=== PATIENT | female | born 1965 | race Caucasian/White ===

== ENCOUNTER 2020-06-03 17:31 | Emergency (ER) | payer MEDICARE, MEDICAID, SELFPAY ==
[2020-06-03] VITALS (7 sets, daily range): BP systolic 86–133; BP diastolic 47–62; PULSE 83–96; RESP 16; TEMP 37.1; O2SAT 93–100; BMI 22.9
--- NOTE | 2020-06-03 18:01 | ED_ITS ---
HPI - Skin/Abscess/Foreign Bdy General Chief complaint: Skin/Abscess/Foreign Body Stated complaint: states cellulitis Time Seen by Provider: 06/03/20 18:01 Source: patient Mode of arrival: Wheelchair Limitations: no limitations History of Present Illness HPI narrative: 55-year-old smoker with a history of skin infections presents with a chief complaint of ongoing pain and drainage from an abscess on her right hip. She states that less than a week ago she started developing some redness, pain and swelling on her right hip in the absence of any injury and 3 or 4 days ago was seen at an outside facility and had an incision and drainage with the placement of awake and was placed on a combination of Keflex and Bactrim. She states that the redness is gone, the pain is improved, they are still small amount of drainage, she denies any nausea, vomiting or diarrhea. She denies any history of IVDA MD complaint: abscess/boil Onset (ago): day(s) Tetanus up to date: yes Location: RLE Severity: mild Quality: aching Pain Consistency: constant Relieving factors: none Exacerbating factors: palpation Context: recent antibiotic Associated symptoms: denies other symptoms Treatments prior to arrival: bandages and antibiotic Related Data Allergies Allergy/AdvReac Type Severity Reaction Status Date / Time vancomycin Allergy Severe Difficulty Verified 06/03/20 17:43 Breathing flu shot Allergy Uncoded 06/03/20 17:43 Review of Systems Constitutional Constitutional: Denies chills, Denies fatigue, Denies fever(s), Denies frequent falls, Denies lethargy and Denies weakness Eyes Eyes: Denies change in vision, Denies eye discharge, Denies irritation and Denies loss of vision ENT Ears, Nose, Mouth, and Throat: Denies change in voice, Denies dizziness, Denies neck pain, Denies sore throat and Denies throat swelling Cardiovascular Cardiovascular: Denies chest pain, Denies irregular heart rhythm, Denies lightheadedness, Denies palpitations, Denies dyspnea, Denies dyspnea on exertion and Denies orthopnea Respiratory Respiratory: Denies cough, Denies dyspnea, Denies dyspnea on exertion and Denies wheezing Gastrointestinal Gastrointestinal: Denies abdominal pain, Denies change in bowel habits, Denies diarrhea, Denies nausea and Denies vomiting Musculoskeletal Musculoskeletal: Denies neck pain and Denies numbness Integumentary/Breasts Skin/Breast: Denies pruritus, Denies erythema, Denies rash, Reports skin pain, Reports skin swelling and Denies wounds Neurologic Neurologic: Denies behavioral changes, Denies confusion, Denies dizziness, Denies frequent falls, Denies loss of vision, Denies numbness and Denies weakness Psychiatric Psychiatric: Denies anxiety, Denies behavioral changes, Denies confusion, Denies depression, Denies homicidal ideation and Denies suicidal ideation Endocrine Endocrine: Denies fatigue, Denies flushing and Denies palpitations Hematologic/Lymphatic Hematologic/Lymphatic: Denies easy bruising Allergic/Immunologic Allergic/Immunologic: Denies urticaria, Denies throat swelling and Denies wheezing Patient History Social History Smoking Status: Current every day smoker Smoking Status: Current every day smoker alcohol intake frequency: a few times a month Substance Use Type: does not use Exam Narrative Exam Narrative: GEN: AOx3 and in mild distress EYES: Pupils are equal, round, and reactive to light and accommodation. Extraoccular muscles are intact bilaterally. There is no subconjunctival hemorrhage or exudate. CHEST: Lungs are clear to auscultation bilaterally and free of wheezes, rales, or rhonchi. Heart rate is regular rhythm, there are no murmurs, clicks, rubs, or gallops. There is no chest wall tenderness. ABD: Abdomen is soft and nontender. There is no guarding or rebound. Bowel sounds are normal in all 4 quadrants. There is no mass or organomegaly. EXT: Full painless ROM of all extremities with no loss of sensation or strength. SKIN: 5 x 7 cm area of induration on right hip without fluctuance, erythema or warmth. Clear to mildly purulent drainage from small incision site with small piece of packing in place. Bedside US demonstrates no obvious fluid collection. Otherwise warm, pink, and dry. No erythema or rash Initial Vital Signs Initial Vital Signs: Vital Signs Temperature 98.7 F 06/03/20 17:40 Pulse Rate 96 H 06/03/20 17:40 Respiratory Rate 16 06/03/20 17:40 Blood Pressure 133/61 06/03/20 17:40 Pulse Oximetry 100 06/03/20 17:40 Course Orders Ordered: ED Orders 06/03/20 18:20 Basic Metabolic Panel Stat Complete Blood Count AUTO DIFF Stat Discontinued Medications Hydrocodone Bitart/Acetaminophen (Hydrocodone/Acet 5/325 Prepack) 1 bottle MISC SEEINSTR ONE Stop: 06/03/20 19:15 Last Admin: 06/03/20 19:31 Dose: 1 bottle Documented by: PHILLIP Potassium Chloride (Potassium Chloride 20 Meq Tab) 40 meq PO NOW ONE Stop: 06/03/20 19:02 Last Admin: 06/03/20 19:08 Dose: 40 meq Documented by: PHILLIP Vital Signs Vital signs: Vital Signs - 8 hr 06/03/20 17:40 06/03/20 17:51 06/03/20 18:00 Temperature 98.7 F Pulse Rate 96 H 96 H 88 Respiratory Rate 16 Blood Pressure 133/61 86/47 L Pulse Oximetry 100 98 96 06/03/20 18:07 06/03/20 18:30 06/03/20 18:31 Temperature Pulse Rate 94 H 96 H Respiratory Rate Blood Pressure 106/57 L 126/60 Pulse Oximetry 100 100 93 06/03/20 19:00 Temperature Pulse Rate 83 Respiratory Rate Blood Pressure 113/62 Pulse Oximetry 95 MDM - Skin/Abscess/Foreign Bdy Lab Data Result diagrams: 06/03/20 18:20 06/03/20 18:20 Labs: Lab Results 06/03/20 06/03/20 Range/Units 18:20 18:20 WBC 5.9 (4.5-11.0) X10^3/uL RBC 4.16 (4.0-5.2) X10^6/uL Hgb 11.0 L (12.0-16.0) g/dL Hct 32.9 L (36-46) % MCV 78.9 L (80-100) fL MCH 26.4 (26-34) PG MCHC 33.5 (30-36) % RDW 13.6 (11.6-14.8) % Plt Count 218 (150-400) X10^3/uL Neut % (Auto) 58.6 (50-75) % Lymph % (Auto) 31.8 (25-40) % Morehouse % (Auto) 6.7 (3-14) % Eos % (Auto) 2.2 (2-4) % Baso % (Auto) 0.7 (0-2) % Neut # (Auto) 3400 (7218-3899) /uL Lymph # (Auto) 1900 (2785-3814) /uL Morehouse # (Auto) 400 (0-900) /uL Eos # (Auto) 100 (0-450) /uL Baso # (Auto) 0 (0-100) /uL Sodium 137 (137-145) mmol/L Potassium 3.3 L (3.4-5.1) mmol/L Chloride 101 (98-107) mmol/L Carbon Dioxide 30 (22-32) mmol/L BUN 13 (7-17) mg/dL Creatinine 0.74 (0.52-1.04) mg/dL Estimated GFR > 60.0 (>60) mL/min BUN/Creatinine Ratio 17.6 (6-22) Glucose 122 H (70-100) mg/dL Calcium 8.8 (8.4-10.2) mg/dL MDM Narrative Medical decision making narrative: Patient with R hip abscess a few days removed from incision and drainage and use of ABX. No longer fluctuant, no erythema, no obvious fluid collectrion requiring further I&D. NO evidence of sepsis. Return precautions given, questions answered to her apparent satisfaction Discharge Plan Departure Patient Disposition: Home Clinical Impression: Abscess of skin or subcutaneous tissue Qualifiers: Site of cutaneous abscess: extremity Site of cutaneous abscess of extremity: lower extremity Laterality: right Qualified Code(s): L02.415 - Cutaneous abscess of right lower limb Instructions: DI for Skin Abscess Activity Restrictions/Additional Instructions: *You have been diagnosed with [abscess of your right hip. Your exam and blood work are very reassuring. This is likely to take many more days to resolve but we appear to be on the right] *What to do: * continue take medications as directed *Follow up with your primary care provider in 2-3 days, call for an chester ointment. Let them know you were seen in the Emergency Department and that we ask that you be seen in follow up *Return to ER if you should have any new, worsening or concerning symptoms, such as [fever, shaking chills, nausea, vomiting, worsening surrounding redness or other concerns] Referrals: [facility] [Outside]
[2020-06-03 18:40] LABS: Add Manual Diff / Slide Review NO; Basophils Absolute Auto 0 /uL (0-100); Basophils Percent Auto 0.7 % (0-2); Eosinophils Absolute Auto 100 /uL (0-450); Eosinophils Percent Auto 2.2 % (2-4); Hematocrit 32.9 % (36-46); Lymphocytes Absolute Auto 1900 /uL (1100-4500); Lymphocytes Percent Auto 31.8 % (25-40); Mean Corpuscular HGB Conc 33.5 % (30-36); Mean Corpuscular Hemoglobin 26.4 PG (26-34); Mean Corpuscular Volume 78.9 fL (80-100); Monocytes Absolute Auto 400 /uL (0-900); Monocytes Percent Auto 6.7 % (3-14); Neutrophils Absolute Auto 3400 /uL (1500-7000); Neutrophils Percent Auto 58.6 % (50-75); Platelet Count 218 X10^3/uL (150-400); Red Blood Cell Count 4.16 X10^6/uL (4.0-5.2); Red Cell Distribution Width 13.6 % (11.6-14.8); White Blood Cell Count 5.9 X10^3/uL (4.5-11.0)
[2020-06-03 18:52] LABS: BUN Creatinine Ratio 17.6 (6-22); Blood Urea Nitrogen 13 mg/dL (7-17); Calcium 8.8 mg/dL (8.4-10.2); Carbon Dioxide 30 mmol/L (22-32); Chloride 101 mmol/L (98-107); Estimated Glomerular Filt Rate > 60.0 mL/min (>60); Glucose 122 mg/dL (70-100); HEMOLYSIS < 15 (0-50); Potassium 3.3 mmol/L (3.4-5.1); Sodium 137 mmol/L (137-145)
[2020-06-03] MEDS: POTASSIUM CHLORIDE 20 MEQ TAB 40 MEQ PO (19:08)
[2020-06-03] MEDS: HYDROCODONE/ACET 5/325 PREPACK 1 BOTTLE MISC (19:31)
== END 2020-06-03 19:32 | disposition home or self-care (01) ==
PROVIDERS: Emergency Provider Emergency Medicine
DX: L02.415 Cutaneous abscess of right lower limb (principal)
CPT/HCPCS: 36415; 80048; 85025; 99283

== ENCOUNTER 2022-10-08 12:20 | Emergency (ER) | payer MEDICARE, MEDICAID, SELFPAY ==
[2022-10-08] VITALS (19 sets, daily range): BP systolic 109–177; BP diastolic 54–87; PULSE 85–112; RESP 17–22; TEMP 36.4–37; O2SAT 90–98; BMI 25.2
--- NOTE | 2022-10-08 12:53 | DI.CT.S_ITS ---
PROCEDURE: CT HEAD/BRAIN WO CON INDICATIONS: left leg gave out 5 days ago,still dragging' a bit TECHNIQUE: Noncontrast 4.5 mm thick angled axial sections acquired from the foramen magnum to the vertex, with coronal and sagittal reformats. For radiation dose reduction, the following was used: automated exposure control, adjustment of mA and/or kV according to patient size. COMPARISON: None. FINDINGS: Image quality: Excellent. CSF spaces: Basal cisterns are patent. No extra-axial fluid collections. Ventricles are normal in size and shape. Brain: No midline shift. No intracranial masses or hemorrhage. Gandhi-white matter interface is normal. Skull and face: Calvarium and visualized facial bones are intact, without suspicious lesions. Sinuses: Visualized sinuses and mastoids are clear. IMPRESSION: 1. No acute intracranial process. Dictated by: Vera Miranda M.D. on 10/08/2022 at 13:35 Approved by: Vera Miranda M.D. on 10/08/2022 at 13:35
--- NOTE | 2022-10-08 16:14 | ED.ANXIETY ---
HPI - Anxiety <Ana Plascencia DO - Last Filed: 10/21/22 14:12> General Chief Complaint: Anxiety Stated Complaint: Fall/Panic Attack Time Seen by Provider: 10/08/22 15:49 Source: patient Mode of arrival: Ambulatory History of Present Illness HPI narrative: Patient 67-year-old female history of anxiety, remote history of Guillain-Oxly presenting today with variety of symptoms. She reports that she fell 5 days ago she has had ongoing back pain. She reports that her left leg gives out on her and she falls. She feels like when she goes to the bathroom she miss judges and falls on the toilet. She has significant tremors at baseline which she states has been ongoing for at least 3 months. She denies any fever or chills. She has back pain all across her back. There are different reports on how long her leg has been weak and giving out on her. Difficult to tell. Patient is under tremendous amount of stress, both grandparents just there her only surviving family Previous record from 02/09/2020 from [facility] has been received and reviewed was admitted for right salpingo-oophorectomy and right removal of a pelvic mass and adhesion removal no blood work is attached it does mention possible opiate dependence. Related Data Allergies Allergy/AdvReac Type Severity Reaction Status Date / Time vancomycin Allergy Severe Difficulty Verified 10/08/22 12:35 Breathing flu shot Allergy Uncoded 06/03/20 17:43 Review of Systems <Ana Plascencia DO - Last Filed: 10/21/22 14:12> Review of Systems ROS Unobtainable: All systems reviewed & are unremarkable except as noted in HPI and below Patient History <Ana Plascencia DO - Last Filed: 10/21/22 14:12> Social History Smoking Status: Current every day smoker Smoking Status: Current every day smoker alcohol intake frequency: holidays/special occasions only Substance Use Type: does not use Exam <DO Alfredo Fitzgerald Last Filed: 10/21/22 14:12> Initial Vital Signs Initial Vital Signs: Vital Signs Temperature 97.6 F 10/08/22 12:33 Pulse Rate 85 10/08/22 12:33 Respiratory Rate 17 10/08/22 12:33 Blood Pressure 177/66 H 10/08/22 12:33 Pulse Oximetry 98 10/08/22 12:33 Oxygen Delivery Method Room Air 10/08/22 12:33 GENERAL: Patient standing with hands-on gurney bent over. She has significant tremors left leg is a little weaker. Appears disheveled HEENT: Head atraumatic,EOMI, pupils reactive, face symmetric, moist mucous membranes CARDIOVASCULAR: Regular rate and rhythm without murmurs, rubs or gallops. RESPIRATORY: Breath sounds equal bilaterally, no wheezes rales or rhonchi. ABDOMEN: Soft, nontender. Normoactive bowel sounds all 4 quadrants. No guarding or rebound. EXTREMITIES: Normal range of motion, no clubbing or edema. Neurovascularly intact NEUROLOGICAL: Alert and oriented x4.Normal gait and speech. Obvious tremors in all parts of body Unable to lift left leg up off the gurney not able to do [id number] SKIN: Warm, dry, no laceration, no petechiae, no rashes or lesions. <Macy Ross MD - Last Filed: 10/09/22 01:49> Initial Vital Signs Initial Vital Signs: Vital Signs Temperature 97.6 F 10/08/22 12:33 Pulse Rate 85 10/08/22 12:33 Respiratory Rate 17 10/08/22 12:33 Blood Pressure 177/66 H 10/08/22 12:33 Pulse Oximetry 98 10/08/22 12:33 Oxygen Delivery Method Room Air 10/08/22 12:33 Course <Ana Plascencia DO - Last Filed: 10/21/22 14:12> Orders Ordered: Discontinued Medications Hydromorphone HCl (Hydromorphone 1 Mg Inj) 1 mg IV NOW ONE Stop: 10/08/22 17:37 Last Admin: 10/08/22 17:49 Dose: 1 mg Documented By: RB Ketorolac Tromethamine (Ketorolac 30 Mg/Ml Vial) 15 mg IV NOW ONE Stop: 10/08/22 16:27 Last Admin: 10/08/22 16:57 Dose: 15 mg Documented By: RB Lorazepam (Lorazepam 2 Mg/Ml Inj) 2 mg IV NOW ONE Stop: 10/08/22 16:27 Last Admin: 10/08/22 16:57 Dose: 2 mg Documented By: RB Lorazepam (Lorazepam 2 Mg/Ml Inj) 2 mg IV NOW ONE Stop: 10/08/22 19:23 Last Admin: 10/08/22 19:30 Dose: 2 mg Documented By: RB Vital Signs Vital signs: Vital Signs - 8 hr 10/08/22 17:55 10/08/22 17:55 10/08/22 17:56 Temperature Pulse Rate 94 H Respiratory Rate Blood Pressure 113/56 L 126/67 Pulse Oximetry 94 Oxygen Delivery Method 10/08/22 17:56 10/08/22 18:00 10/08/22 18:03 Temperature Pulse Rate 92 H 112 H Respiratory Rate Blood Pressure 129/62 Pulse Oximetry 94 90 L Oxygen Delivery Method 10/08/22 18:03 10/08/22 19:56 10/08/22 19:58 Temperature Pulse Rate 97 H 100 H Respiratory Rate Blood Pressure 129/72 Pulse Oximetry 97 Oxygen Delivery Method 10/08/22 19:58 10/08/22 20:00 10/08/22 20:01 Temperature Pulse Rate 96 H 96 H Respiratory Rate 22 Blood Pressure 109/54 L Pulse Oximetry 94 94 Oxygen Delivery Method 10/08/22 20:01 10/08/22 20:45 Temperature 98.6 F Pulse Rate 96 H 96 H Respiratory Rate 21 Blood Pressure 122/61 Pulse Oximetry 96 97 Oxygen Delivery Method Room Air <Macy Ross MD - Last Filed: 10/09/22 01:49> Orders Ordered: Discontinued Medications Hydromorphone HCl (Hydromorphone 1 Mg Inj) 1 mg IV NOW ONE Stop: 10/08/22 17:37 Last Admin: 10/08/22 17:49 Dose: 1 mg Documented By: RB Ketorolac Tromethamine (Ketorolac 30 Mg/Ml Vial) 15 mg IV NOW ONE Stop: 10/08/22 16:27 Last Admin: 10/08/22 16:57 Dose: 15 mg Documented By: RB Lorazepam (Lorazepam 2 Mg/Ml Inj) 2 mg IV NOW ONE Stop: 10/08/22 16:27 Last Admin: 10/08/22 16:57 Dose: 2 mg Documented By: RB Lorazepam (Lorazepam 2 Mg/Ml Inj) 2 mg IV NOW ONE Stop: 10/08/22 19:23 Last Admin: 10/08/22 19:30 Dose: 2 mg Documented By: RB Vital Signs Vital signs: Vital Signs - 8 hr 10/08/22 17:55 10/08/22 17:55 10/08/22 17:56 Temperature Pulse Rate 94 H Respiratory Rate Blood Pressure 113/56 L 126/67 Pulse Oximetry 94 Oxygen Delivery Method 10/08/22 17:56 10/08/22 18:00 10/08/22 18:03 Temperature Pulse Rate 92 H 112 H Respiratory Rate Blood Pressure 129/62 Pulse Oximetry 94 90 L Oxygen Delivery Method 10/08/22 18:03 10/08/22 19:56 10/08/22 19:58 Temperature Pulse Rate 97 H 100 H Respiratory Rate Blood Pressure 129/72 Pulse Oximetry 97 Oxygen Delivery Method 10/08/22 19:58 10/08/22 20:00 10/08/22 20:01 Temperature Pulse Rate 96 H 96 H Respiratory Rate 22 Blood Pressure 109/54 L Pulse Oximetry 94 94 Oxygen Delivery Method 10/08/22 20:01 10/08/22 20:45 Temperature 98.6 F Pulse Rate 96 H 96 H Respiratory Rate 21 Blood Pressure 122/61 Pulse Oximetry 96 97 Oxygen Delivery Method Room Air MDM - Anxiety <Ana Plascencia, DO - Last Filed: 10/21/22 14:12> Lab Data 10/08/22 16:40 10/08/22 16:40 Labs: Lab Results 10/08/22 10/08/22 10/08/22 Range/Units 16:40 16:40 17:03 WBC 5.7 (4.5-11.0) X10^3/uL RBC 4.80 (4.0-5.2) X10^6/uL Hgb 13.0 (12.0-16.0) g/dL Hct 38.4 (36-46) % MCV 80.0 (80-100) fL MCH 27.0 (26-34) PG MCHC 33.8 (30-36) % RDW 13.9 (11.6-14.8) % Plt Count 115 L (150-400) X10^3/uL Neut % (Auto) 51.2 (50-75) % Lymph % (Auto) 38.9 (25-40) % Hinds % (Auto) 8.9 (3-14) % Eos % (Auto) 0.8 L (2-4) % Baso % (Auto) 0.2 (0-2) % Neut # (Auto) 2900 (5228-7794) /uL Lymph # (Auto) 2200 (2869-0574) /uL Hinds # (Auto) 500 (0-900) /uL Eos # (Auto) 0 (0-450) /uL Baso # (Auto) 0 (0-100) /uL Sodium 137 (137-145) mmol/L Potassium 4.2 (3.4-5.1) mmol/L Chloride 104 (98-107) mmol/L Carbon Dioxide 26 (22-32) mmol/L BUN 13 (7-17) mg/dL Creatinine 0.82 (0.52-1.04) mg/dL Estimated GFR > 60 (>60) mL/min BUN/Creatinine Ratio 15.9 (6-22) Glucose 75 (70-100) mg/dL Calcium 9.0 (8.4-10.2) mg/dL Total Bilirubin 0.9 (0.2-1.3) mg/dL AST 34 (14-36) IU/L ALT 27 (<35) IU/L Alkaline Phosphatase 72 (38-126) U/L Total Creatine Kinase 51 (30-135) U/L Total Protein 7.5 (6.3-8.2) g/dL Albumin 4.2 (3.5-5.0) g/dL Globulin 3.3 (1.7-4.1) g/dL Albumin/Globulin Ratio 1.3 (1.0-2.8) Urine RBC (0-5/HPF) Urine WBC (0-5/HPF) Ur Squamous Epith Cells (0-5/HPF) Calcium Oxalate Crystal Urine Bacteria (None) U Opiates 300ng/mL cut Negative (Negative) Ur Oxycodone Screen Negative (Negative) Urine Methadone Screen Positive H (Negative) Ur Barbiturates Screen Negative (Negative) U Tricyclic Antidepress Positive H (Negative) Ur Phencyclidine Scrn Negative (Negative) Ur Amphetamines Screen Negative (Negative) U Methamphetamines Scrn Negative (Negative) Ur MDMA Scrn (Ecstasy) Negative (Negative) U Benzodiazepines Scrn Positive H (Negative) Urine Cocaine Screen Negative (Negative) U Marijuana (THC) Screen Negative (Negative) 10/08/22 Range/Units 17:03 WBC (4.5-11.0) X10^3/uL RBC (4.0-5.2) X10^6/uL Hgb (12.0-16.0) g/dL Hct (36-46) % MCV (80-100) fL MCH (26-34) PG MCHC (30-36) % RDW (11.6-14.8) % Plt Count (150-400) X10^3/uL Neut % (Auto) (50-75) % Lymph % (Auto) (25-40) % Hinds % (Auto) (3-14) % Eos % (Auto) (2-4) % Baso % (Auto) (0-2) % Neut # (Auto) (5103-9018) /uL Lymph # (Auto) (3606-2971) /uL Hinds # (Auto) (0-900) /uL Eos # (Auto) (0-450) /uL Baso # (Auto) (0-100) /uL Sodium (137-145) mmol/L Potassium (3.4-5.1) mmol/L Chloride (98-107) mmol/L Carbon Dioxide (22-32) mmol/L BUN (7-17) mg/dL Creatinine (0.52-1.04) mg/dL Estimated GFR (>60) mL/min BUN/Creatinine Ratio (6-22) Glucose (70-100) mg/dL Calcium (8.4-10.2) mg/dL Total Bilirubin (0.2-1.3) mg/dL AST (14-36) IU/L ALT (<35) IU/L Alkaline Phosphatase (38-126) U/L Total Creatine Kinase (30-135) U/L Total Protein (6.3-8.2) g/dL Albumin (3.5-5.0) g/dL Globulin (1.7-4.1) g/dL Albumin/Globulin Ratio (1.0-2.8) Urine RBC 0-1/hpf (0-5/HPF) Urine WBC 0-1/hpf (0-5/HPF) Ur Squamous Epith Cells 0-1 /hpf (0-5/HPF) Calcium Oxalate Crystal Moderate H Urine Bacteria Occasional (0-1) (None) U Opiates 300ng/mL cut (Negative) Ur Oxycodone Screen (Negative) Urine Methadone Screen (Negative) Ur Barbiturates Screen (Negative) U Tricyclic Antidepress (Negative) Ur Phencyclidine Scrn (Negative) Ur Amphetamines Screen (Negative) U Methamphetamines Scrn (Negative) Ur MDMA Scrn (Ecstasy) (Negative) U Benzodiazepines Scrn (Negative) Urine Cocaine Screen (Negative) U Marijuana (THC) Screen (Negative) Urine Dip Bedside Urine Glucose Negative Bedside Urine Bilirubin - Negative Bedside Urine Ketone - Negative Urine Specific Blanchard 1.030 Bedside Urine Occult Blood - Negative Bedside Urine pH 6.0 Bedside Urine Protein +/- 15 Bedside Urine Urobilinogen - Negative Bedside Urine Nitrite - Negative Bedside Urine Leukocytes - Negative Esterase Imaging Data CT scan - head: Radiologist's Impression: PROCEDURE:? CT HEAD/BRAIN WO CON ? INDICATIONS:? left leg gave out 5 days ago,still dragging' a bit ? TECHNIQUE:? Noncontrast 4.5 mm thick angled axial sections acquired from the foramen magnum to the vertex, with coronal and sagittal reformats.? For radiation dose reduction, the following was used:? automated exposure control, adjustment of mA and/or kV according to patient size.? ? COMPARISON:? None. ? FINDINGS:? Image quality:? Excellent.? ? CSF spaces:? Basal cisterns are patent.? No extra-axial fluid collections.? Ventricles are normal in size and shape.? ? Brain:? No midline shift.? No intracranial masses or hemorrhage.? Gandhi-white matter interface is normal.? ? Skull and face:? Calvarium and visualized facial bones are intact, without suspicious lesions.? ? Sinuses:? Visualized sinuses and mastoids are clear.? ? IMPRESSION:? ? 1. No acute intracranial process. ? Dictated by: Vera Miranda M.D. on 10/08/2022 at 13:35? [facility] Narrative Medical decision making narrative: Patient 57-year-old female appears older than stated age presents today with a variety of symptoms. She reports that her left leg is weak and keeps giving out on her which it does. However her tremors in both upper and lower extremities are very uncontrollable. Drug screen is positive for methadone which she was not forthcoming about, along with tricyclics and benzodiazepines. She does take Valium twice daily she missed her morning dose. She is afebrile there is no leukocytosis no sign of infection. Patient is given 2 mg of Ativan which does help with the tremors quite a bit. Head CT was negative there is concern for possible stroke versus back and spinal injury. She is complaining of back pain she did fall think probably more back related at this time although extremely difficult to tell. MRI lumbar ordered she required Dilaudid to help with the MRI and tremors. <Macy Ross MD - Last Filed: 10/09/22 01:49> Lab Data Labs: Lab Results 10/08/22 10/08/22 10/08/22 Range/Units 16:40 16:40 17:03 WBC 5.7 (4.5-11.0) X10^3/uL RBC 4.80 (4.0-5.2) X10^6/uL Hgb 13.0 (12.0-16.0) g/dL Hct 38.4 (36-46) % MCV 80.0 (80-100) fL MCH 27.0 (26-34) PG MCHC 33.8 (30-36) % RDW 13.9 (11.6-14.8) % Plt Count 115 L (150-400) X10^3/uL Neut % (Auto) 51.2 (50-75) % Lymph % (Auto) 38.9 (25-40) % Hinds % (Auto) 8.9 (3-14) % Eos % (Auto) 0.8 L (2-4) % Baso % (Auto) 0.2 (0-2) % Neut # (Auto) 2900 (8214-6689) /uL Lymph # (Auto) 2200 (8024-7584) /uL Hinds # (Auto) 500 (0-900) /uL Eos # (Auto) 0 (0-450) /uL Baso # (Auto) 0 (0-100) /uL Sodium 137 (137-145) mmol/L Potassium 4.2 (3.4-5.1) mmol/L Chloride 104 (98-107) mmol/L Carbon Dioxide 26 (22-32) mmol/L BUN 13 (7-17) mg/dL Creatinine 0.82 (0.52-1.04) mg/dL Estimated GFR > 60 (>60) mL/min BUN/Creatinine Ratio 15.9 (6-22) Glucose 75 (70-100) mg/dL Calcium 9.0 (8.4-10.2) mg/dL Total Bilirubin 0.9 (0.2-1.3) mg/dL AST 34 (14-36) IU/L ALT 27 (<35) IU/L Alkaline Phosphatase 72 (38-126) U/L Total Creatine Kinase 51 (30-135) U/L Total Protein 7.5 (6.3-8.2) g/dL Albumin 4.2 (3.5-5.0) g/dL Globulin 3.3 (1.7-4.1) g/dL Albumin/Globulin Ratio 1.3 (1.0-2.8) Urine RBC (0-5/HPF) Urine WBC (0-5/HPF) Ur Squamous Epith Cells (0-5/HPF) Calcium Oxalate Crystal Urine Bacteria (None) U Opiates 300ng/mL cut Negative (Negative) Ur Oxycodone Screen Negative (Negative) Urine Methadone Screen Positive H (Negative) Ur Barbiturates Screen Negative (Negative) U Tricyclic Antidepress Positive H (Negative) Ur Phencyclidine Scrn Negative (Negative) Ur Amphetamines Screen Negative (Negative) U Methamphetamines Scrn Negative (Negative) Ur MDMA Scrn (Ecstasy) Negative (Negative) U Benzodiazepines Scrn Positive H (Negative) Urine Cocaine Screen Negative (Negative) U Marijuana (THC) Screen Negative (Negative) 10/08/22 Range/Units 17:03 WBC (4.5-11.0) X10^3/uL RBC (4.0-5.2) X10^6/uL Hgb (12.0-16.0) g/dL Hct (36-46) % MCV (80-100) fL MCH (26-34) PG MCHC (30-36) % RDW (11.6-14.8) % Plt Count (150-400) X10^3/uL Neut % (Auto) (50-75) % Lymph % (Auto) (25-40) % Hinds % (Auto) (3-14) % Eos % (Auto) (2-4) % Baso % (Auto) (0-2) % Neut # (Auto) (0064-4628) /uL Lymph # (Auto) (7565-5003) /uL Hinds # (Auto) (0-900) /uL Eos # (Auto) (0-450) /uL Baso # (Auto) (0-100) /uL Sodium (137-145) mmol/L Potassium (3.4-5.1) mmol/L Chloride (98-107) mmol/L Carbon Dioxide (22-32) mmol/L BUN (7-17) mg/dL Creatinine (0.52-1.04) mg/dL Estimated GFR (>60) mL/min BUN/Creatinine Ratio (6-22) Glucose (70-100) mg/dL Calcium (8.4-10.2) mg/dL Total Bilirubin (0.2-1.3) mg/dL AST (14-36) IU/L ALT (<35) IU/L Alkaline Phosphatase (38-126) U/L Total Creatine Kinase (30-135) U/L Total Protein (6.3-8.2) g/dL Albumin (3.5-5.0) g/dL Globulin (1.7-4.1) g/dL Albumin/Globulin Ratio (1.0-2.8) Urine RBC 0-1/hpf (0-5/HPF) Urine WBC 0-1/hpf (0-5/HPF) Ur Squamous Epith Cells 0-1 /hpf (0-5/HPF) Calcium Oxalate Crystal Moderate H Urine Bacteria Occasional (0-1) (None) U Opiates 300ng/mL cut (Negative) Ur Oxycodone Screen (Negative) Urine Methadone Screen (Negative) Ur Barbiturates Screen (Negative) U Tricyclic Antidepress (Negative) Ur Phencyclidine Scrn (Negative) Ur Amphetamines Screen (Negative) U Methamphetamines Scrn (Negative) Ur MDMA Scrn (Ecstasy) (Negative) U Benzodiazepines Scrn (Negative) Urine Cocaine Screen (Negative) U Marijuana (THC) Screen (Negative) Urine Dip Bedside Urine Glucose Negative Bedside Urine Bilirubin - Negative Bedside Urine Ketone - Negative Urine Specific Blanchard 1.030 Bedside Urine Occult Blood - Negative Bedside Urine pH 6.0 Bedside Urine Protein +/- 15 Bedside Urine Urobilinogen - Negative Bedside Urine Nitrite - Negative Bedside Urine Leukocytes - Negative Esterase Imaging Data MR lumbar: Radiologist's Impression: IMPRESSION:? 1. At L3-4, grade 1 anterolisthesis and superimposed degenerative changes result in moderate narrowing of the spinal canal, effacement of the bilateral lateral recesses, moderate to severe right neural foraminal narrowing, and moderate left neural foraminal narrowing. 2. At L4-5, degenerative changes result in mild narrowing of the spinal canal, mild to moderate right neural foraminal narrowing, and moderate left neural foraminal narrowing. 3. Additional degenerative disc disease and facet hypertrophy as described in the body of the report. ? ? Approved by: Justino Nazario M.D. on 10/08/2022 at 19:18? MR Brain: Radiologist's Impression: IMPRESSION:? ? 1. Limited study demonstrates no infarct or other definite acute intracranial abnormality. ? 2. Partial fluid opacification of the left mastoid air cells suggestive of mastoiditis.? ? ? Dictated by: Seth Bunch M.D. on 10/08/2022 at 20:05 ? ? Head and Neck CTA: Radiologist's Impression: IMPRESSION:? 1. No hemodynamically significant arterial stenosis or occlusion is seen in the head or neck. 2. At the proximal A2 segment of the right anterior cerebral artery, there is a 6 mm saccular aneurysm.? No signs of aneurysmal rupture or acute intracranial hemorrhage.? ? Any quantitative measurements of stenosis were performed using NASCET criteria.? Approved by: Justino Nazario M.D. on 10/08/2022 at 20:01? MDM Narrative Medical decision making narrative: Patient 57-year-old female appears older than stated age presents today with a variety of symptoms. She reports that her left leg is weak and keeps giving out on her which it does. However her tremors in both upper and lower extremities are very uncontrollable. Drug screen is positive for methadone which she was not forthcoming about, along with tricyclics and benzodiazepines. She does take Valium twice daily she missed her morning dose. She is afebrile there is no leukocytosis no sign of infection. Patient is given 2 mg of Ativan which does help with the tremors quite a bit. Head CT was negative there is concern for possible stroke versus back and spinal injury. She is complaining of back pain she did fall think probably more back related at this time although extremely difficult to tell. MRI lumbar ordered she required Dilaudid to help with the MRI and tremors. Dr Ross: Care is assumed, chart is reviewed, patient is independently examined She initially presents for back pain with her left leg giving out causing falling. Differential includes mechanical falls, acute lumbar radiculopathy including epidural abscess, stroke, chronic gait instability, infection Lab work is entirely benign suggesting absence of infection,. Chemistries are unremarkable with reassuring renal function, liver function and electrolytes. Urine tox screen does show benzodiazepines and methadone. Imaging studies done include CT of the head with no intracranial acute abnormalities. CT angiogram of the head and neck with no acute findings but a noted 6 mm aneurysmal nonruptured sac in the A2 distribution of the right anterior cerebral artery is incidentally found. No other significant findings MRI of the brain does not suggest acute stroke MRI of the lumbar spine does not show any severe acute new pathology and no epidural abscess At this time no significant pathology is identified that require additional workup, lab work or hospitalization. Recommended that patient follow-up with her primary care physician regarding the incidentally noted brain aneurysm. Discussed help with gait stability including using a cane or walker. 830pm on re-evaluation patient still seems acutely disoriented. She seems intoxicated, can not focus, does not understand our discussion with significant tangential thinking. She does have her partner with whom she lives here who states that this has been what her behavior has been like. At this point she is not an imminent danger to herself or others and because she does have a reliable adult to be discharged home with I continue to believe At this point she is safe for discharge home. Did strongly recommend follow-up with her primary care physician. Discharge Plan Departure Patient Disposition: Home Clinical Impression: Acute exacerbation of chronic low back pain, Gait instability Altered mental status Qualifiers: Altered mental status type: unspecified Qualified Code(s): R41.82 - Altered mental status, unspecified Activity Restrictions/Additional Instructions: Thank you for coming in today We did not find any life-threatening abnormalities on your workup today. Specifically there is no evidence of stroke, brain tumors or bleeding anterior brain. Similarly, there was no severe pathology in your lumbar spine based on the MRI to suggest additional explanation for your chronic back pain. We did find an abnormality on [address] scans in your brain. You have an incidentally found 6 mm aneurysm on the right side in the anterior cerebral artery. This is not currently causing any problems and not related to your visit today. However, your primary care doctor may request that you follow-up with a neurosurgeon to see if any additional treatment is needed for this small aneurysm. With your gait instability I would encourage you to use your cane frequently. It does appear that you are taking methadone. I understand that your chronic back pain is severe however methadone is an interesting medication and can accumulate in your body and can cause confusion and other issues. I encourage you to discuss your methadone dose with your methadone providing doctor. If you find that you are getting worse or develop any new symptoms, please feel free to return to the emergency department for further evaluation. Referrals: Miscellaneous,Doctor, MD [Primary Care Provider] - Stand Alone Forms: Patient Portal/API
--- NOTE | 2022-10-08 16:42 | DI.MRI.S_ITS ---
PROCEDURE: MR LUMBAR SPINE WO CON INDICATIONS: can't move left leg TECHNIQUE: Noncontrast sagittal T1 spin echo and T2 fast echo, sagittal STIR, and T2 fast spin echo through the lumbar spine. In cases with scoliosis, additional coronal T2 fast spin echo may be performed. COMPARISON: None. FINDINGS: Image quality: Images are mildly degraded by patient motion despite repeat sequences being acquired. Diagnostic information is obtained. Alignment and Curvature: There is mild grade 1 anterolisthesis of L3 on L4 measuring 3 mm. Mild levoconvex curvature of the lumbar spine. Bone Marrow: Marrow is of normal overall signal. No acute vertebral body compression fractures. Spinal Cord: Conus medullaris terminates at the L1-2 disc space level. Visualized cord demonstrates normal signal and size. Paraspinous Soft Tissues: No paravertebral masses. Paraspinous musculature is normal in bulk. T12-L1: No significant spinal canal stenosis or neural foraminal narrowing. L1-L2: Disc desiccation and mild circumferential disc bulging without significant spinal canal stenosis and mild bilateral neural foraminal narrowing. L2-L3: Disc desiccation and circumferential disc bulging as well as mild bilateral facet hypertrophy, which result in mild narrowing of the bilateral neural foramina and mild spinal canal narrowing. L3-L4: Grade 1 anterolisthesis of L3 on L4 with uncovering of the disc space and superimposed circumferential disc bulging as well as moderate to severe bilateral facet hypertrophy and buckling of the ligamentum flavum. Findings result in moderate narrowing of the spinal canal with effacement of the bilateral lateral recesses as well as moderate to severe right and moderate left neural foraminal narrowing. L4-L5: Disc desiccation and mild circumferential disc bulging as well as mild to moderate bilateral facet hypertrophy, which result in mild narrowing of the spinal canal and mild to moderate right and moderate left neural foraminal narrowing. L5-S1: No significant spinal canal stenosis or neural foraminal narrowing. IMPRESSION: 1. At L3-4, grade 1 anterolisthesis and superimposed degenerative changes result in moderate narrowing of the spinal canal, effacement of the bilateral lateral recesses, moderate to severe right neural foraminal narrowing, and moderate left neural foraminal narrowing. 2. At L4-5, degenerative changes result in mild narrowing of the spinal canal, mild to moderate right neural foraminal narrowing, and moderate left neural foraminal narrowing. 3. Additional degenerative disc disease and facet hypertrophy as described in the body of the report. Approved by: Justino Nazario M.D. on 10/08/2022 at 19:18
[2022-10-08] MEDS: KETOROLAC 30 MG/ML VIAL 15 MG IV (16:57)
[2022-10-08] MEDS: LORazepam 2 MG/ML INJ IV ×2 (16:57→19:30)
[2022-10-08 17:06] LABS: Add Manual Diff / Slide Review NO; Basophils Absolute Auto 0 /uL (0-100); Basophils Percent Auto 0.2 % (0-2); Eosinophils Absolute Auto 0 /uL (0-450); Eosinophils Percent Auto 0.8 % (2-4); Hematocrit 38.4 % (36-46); Lymphocytes Absolute Auto 2200 /uL (1100-4500); Lymphocytes Percent Auto 38.9 % (25-40); Mean Corpuscular HGB Conc 33.8 % (30-36); Monocytes Absolute Auto 500 /uL (0-900); Monocytes Percent Auto 8.9 % (3-14); Neutrophils Absolute Auto 2900 /uL (1500-7000); Neutrophils Percent Auto 51.2 % (50-75); Platelet Count 115 X10^3/uL (150-400); Red Cell Distribution Width 13.9 % (11.6-14.8); White Blood Cell Count 5.7 X10^3/uL (4.5-11.0)
[2022-10-08 17:19] LABS: Alanine Aminotransferase 27 IU/L (<35); Albumin 4.2 g/dL (3.5-5.0); Albumin Globulin Ratio 1.3 (1.0-2.8); Alkaline Phosphatase 72 U/L (38-126); Aspartate Aminotransferase 34 IU/L (14-36); BUN Creatinine Ratio 15.9 (6-22); Bilirubin Total 0.9 mg/dL (0.2-1.3); Blood Urea Nitrogen 13 mg/dL (7-17); Carbon Dioxide 26 mmol/L (22-32); Chloride 104 mmol/L (98-107); Creatine Kinase 51 U/L (30-135); Estimated Glomerular Filt Rate > 60 mL/min (>60); Globulin 3.3 g/dL (1.7-4.1); Glucose 75 mg/dL (70-100); HEMOLYSIS 56 (0-50); Potassium 4.2 mmol/L (3.4-5.1); Sodium 137 mmol/L (137-145); Total Protein 7.5 g/dL (6.3-8.2)
[2022-10-08 17:24] LABS: UR Morphine/Opiate cutoff 300 Negative (Negative); Ur Creatinine Normal (Normal); Ur Specific Gravity Normal (Normal); Urine Amphetamines Negative (Negative); Urine Barbiturates Negative (Negative); Urine Benzodiazepines Positive (Negative); Urine Cocaine Negative (Negative); Urine MDMA Negative (Negative); Urine Methadone Positive (Negative); Urine Methamphetamines Negative (Negative); Urine Oxycodone Negative (Negative); Urine Phencyclidine Negative (Negative); Urine Tetrahydrocannabinol Negative (Negative); Urine Tricyclic Antidepressant Positive (Negative); Urine pH Normal (Normal)
[2022-10-08 17:29] LABS: Bacteria Urine Occasional (0-1); Calcium Oxalate Crystals Urine Moderate; RBC Urine 0-1/HPF (0-5/HPF); Squamous Epithelial Cell Urine 0-1 /HPF (0-5/HPF); WBC Urine 0-1/HPF (0-5/HPF)
[2022-10-08] MEDS: HYDROMORPHONE 1 MG INJ IV (17:49)
--- NOTE | 2022-10-08 18:50 | PC.NURSE ---
Patient approached nurse station and stated We're drug addicts here and we need help, I have a lot of things going on. Pt further implied staff were speaking about her and drug addicts, though staff were not. edge roller aware of situation, further assured pt she did not appropriately hear conversation and staff were not discussing her.
--- NOTE | 2022-10-08 19:09 | DI.MRI.S_ITS ---
/PROCEDURE: MR HEAD/BRAIN WO CON INDICATIONS: left leg weakness TECHNIQUE: Noncontrast axial T1 spin echo, axial T2 fast spin echo, sagittal and axial FLAIR, coronal T2 fast spin echo, axial gradient echo, axial diffusion and ADC through the brain. COMPARISON: [facility], CT, CT ANGIO HEAD AND NECK, 10/08/2022, 19:17. [facility], CT, CT HEAD/BRAIN WO CON, 10/08/2022, 13:02. FINDINGS: Image quality: Evaluation is markedly limited by motion artifact. CSF Spaces: Basal cisterns are patent. No extra-axial fluid collections. Ventricles are normal in size and shape. Brain: Diffusion-weighted images demonstrate no acute infarcts. No definite intracranial hemorrhage, mass, or mass effect. Gandhi/white matter interface is grossly preserved. Brainstem appears grossly normal. Skull and face: Calvarium has normal marrow signal. Orbits appear normal. Sinuses: There is mild mucosal thickening within the ethmoid sinuses. There is partial fluid opacification of the left mastoid air cells suggestive of mastoiditis. IMPRESSION: 1. Limited study demonstrates no infarct or other definite acute intracranial abnormality. 2. Partial fluid opacification of the left mastoid air cells suggestive of mastoiditis. Dictated by: Seth Bunch M.D. on 10/08/2022 at 20:05 Approved by: Seth Bunch M.D. on 10/08/2022 at 20:10
--- NOTE | 2022-10-08 19:10 | DI.CT.S_ITS ---
PROCEDURE: CT ANGIO HEAD AND NECK INDICATIONS: right leg weakness TECHNIQUE: After the administration of intravenous contrast, 1 mm thick sections acquired from the aortic arch through the [place] of [place]. Post-contrast 4.5 mm thick sections then re-acquired from the foramen magnum to the vertex. 3-dimensional [id number]-zwrqhhadpr (MIP) and/or volume rendering reformats were acquired of the central intracranial vasculature and neck separately. For radiation dose reduction, the following was used: automated exposure control, adjustment of mA and/or kV according to patient size. COMPARISON: [facility], CT, CT HEAD/BRAIN WO CON, 10/08/2022, 13:02. [facility], MR, MR HEAD/BRAIN WO CON, 10/08/2022, 19:15. FINDINGS: Image quality: Excellent. BRAIN: CSF spaces: Ventricles are normal in size and shape. Basal cisterns are patent. No extra-axial fluid collections. Brain: No midline shift. No acute intracranial hemorrhage or mass effect. Gandhi-white matter interface appears intact. Skull and face: Calvarium and facial bones appear intact, without suspicious lesions. Orbits appear normal. Sinuses: Sinuses and mastoids are clear. HEAD CT ANGIOGRAPHY: Anterior circulation: Intracranial internal carotid arteries are normal in size and flow. The flow within the paired anterior cerebral arteries is normal and symmetric. A 6 mm round aneurysm is seen at the A2 segment of the right anterior cerebral artery. No signs of aneurysm rupture The flow within the middle cerebral arteries is normal and symmetric. The anterior communicating artery is seen. Posterior circulation: Visualized portions of the vertebral arteries demonstrate normal caliber, and join to form a normal appearing basilar artery. Flow within the posterior cerebral arteries is normal and symmetric. No aneurysms are seen. NECK CT ANGIOGRAPHY: Carotid system: The great vessels demonstrate a conventional anatomy as they arise from the aortic arch. The origins of the common carotid arteries appear patent. The common carotid arteries demonstrate normal caliber and courses. The bifurcation regions are both widely patent. The internal carotid arteries demonstrate normal calibers and courses. Posterior circulation: The origins of the vertebral arteries both appear widely patent. The more superior extracranial portions of both vertebral arteries also demonstrate normal courses and calibers. They join to form a normal appearing basilar artery. Soft tissues: Visualized neck soft tissues demonstrate no suspicious abnormalities. Bones: No suspicious bony lesions. Mild degenerative changes in the cervical spine. IMPRESSION: 1. No hemodynamically significant arterial stenosis or occlusion is seen in the head or neck. 2. At the proximal A2 segment of the right anterior cerebral artery, there is a 6 mm saccular aneurysm. No signs of aneurysmal rupture or acute intracranial hemorrhage. Any quantitative measurements of stenosis were performed using NASCET criteria. Approved by: Justino Nazario M.D. on 10/08/2022 at 20:01
--- NOTE | 2022-10-09 07:55 | PC.NURSE ---
pt called this am slurring words and disoriented to time of visit yesterday, stating i was there last night for lumbago and i left my paperwork and my bottle of pills they gave me obtained name, , and phone number to confirm patient. instructed patient i needed to investigate her chart and discharge because I did not care for or discharge her yesterday and did not get in passdown from nightshift any medications left behind to be picked up today. upon reading md note, dc summary, and looking at SEP pt did not recieve a prepack and was instructed to take tylenol for pain. called pt back and read disharge instructions to her and explained she did not recieve any discharge presriptions or a bottle of meds here to take home, pt hung up on this rn. RN could here another person in background on phone call pt was speaking with. discharge papers printed if needed for further review. pt contact number [phone]
== END 2022-10-08 20:47 | disposition home or self-care (01) ==
PROVIDERS: Emergency Provider Emergency Medicine
DX: M54.50 Low back pain, unspecified (principal); R26.89 Other abnormalities of gait and mobility; R41.82 Altered mental status, unspecified; G61.0 Guillain-Barre syndrome; M54.9 Dorsalgia, unspecified; R29.6 Repeated falls; W19.XXXA Unspecified fall, initial encounter
CPT/HCPCS: 36415; 70450; 70496; 70498; 70551; 72148; 80053; 80305; 81003; 81015; 82550; 85025; 87086; 96374; 96375; 96376; 99284; J1170; J1885; J2060